=== PATIENT | male | born 1940 ===

== ENCOUNTER 2017-04-29 01:54 | Inpatient (IN) | payer OTHER ==
[~2017-04-29] VITALS: Ht 188 cm; Wt 106.6 kg
[~2017-04-29 01:54] MED LIST: ALLOPURINOL300 M1 PO; ASPIRIN EC81 M1 PO; DOXAZOSIN MESYLA2 M1 PO; LISINOPRIL10 M1 PO; SIMVASTATIN80 M1 PO; TOPROL XL25 M1 PO
[2017-04-29] MEDS ORDERED: COLACE100 M1 PO (09:56)
[2017-04-29] MEDS ORDERED: MS CONTIN15 M2 PO (09:56)
[2017-04-29] MEDS ORDERED: DILAUDID2 M1 PO (09:56)
[2017-04-29] MEDS ORDERED: MIRALAX17 G1 PO (09:56)
[2017-04-29] MEDS ORDERED: ASPIRIN EC325 M2 PO (09:56)
--- NOTE | 2017-04-29 10:01 | Patient Discharge Instructions ---
Discharge Instructions General Discharge Information You were seen/treated for: Right hip pain related to unilateral primary osteoarthritis You had these procedures: Right total hip replacement Watch for these problems: Increasing pain despite the use of pain medication. Increasing redness, warmth or swelling. Drainage of any type from incision. Inability to bear weight on operative leg. Persistent nausea and vomiting. Fever greater than 101.5 degrees. Do not soak the wound: Yes No bath, but you may shower: Yes Other wound care: Please keep wound clean and dry. No ointments or lotions of any type on or near incision at any time. No exceptions. Your dressing will be changed by your nurse on the second day after your surgery. Daily dry dressing changes are recommended each day thereafter. Do not soak your wound in a bath at any time until otherwise indicated by Dr. Smith. You may shower, please dry wound immediately after shower with a clean towel. Special Instructions: Aspirin: You are taking this medication to help prevent the development of blood clots. Please take with food to protect your stomach lining. Please take as directed. Constipation: Pain medication can be very constipating. Dr. Smith has recommended that you take Colace and miralax each day. You may discontinue this medication if you develop loose stool or diarrhea. If you wish to continue this medication, it is available over the counter. If you are unable to move your bowels after several days, if you are unable to pass gas and are developing bloating, nausea, or vomiting as a result, please contact your doctor. Diet Continue normal diet: Yes Recommended Diet: Heart Healthy Activity Full Activity/No Limits: No Activity Self Limited: Yes Pounds, do NOT lift more than: 10 Activity Limited to: Weight bear as tolerated Acute Coronary Syndrome Inclusion Criteria At DC or during hospital stay patient has or had the following: ACS DIAGNOSIS No Discharge Core Measures Meds if any: Prescribed or Continued at Discharge Meds if any: NOT Prescribed or Continued at Discharge Congestive Heart Failure Inclusion Criteria At DC or during hospital stay patient has or had the following: CHF DIAGNOSIS No Discharge Core Measures Meds if any: Prescribed or Continued at Discharge Meds if any: NOT Prescribed or Continued at Discharge Cerebrovascular accident Inclusion Criteria At DC or during hospital stay patient has or had the following: CVA/TIA Diagnosis No Discharge Core Measures Meds if any: Prescribed or Continued at Discharge Meds if any: NOT Prescribed or Continued at Discharge Venous thromboembolism Inclusion Criteria VTE Diagnosis No VTE Type NONE VTE Confirmed by (Test) NONE Discharge Core Measures - Per Current guidelines, there needs to be overlap - treatment for the first 5 days of Warfarin therapy. - If discharged on Warfarin prior to 5 days of - overlap therapy, the patient will need to be - assessed for post discharge needs including - *Post discharge parental anticoagulation - *Warfarin and/or parental anticoagulation education - *Follow up date to check INR post discharge At least 5 days overlap therapy as Inpatient No Meds if any: Prescribed or Continued at Discharge Note: Overlap Therapy is Warfarin and Anticoagulant Meds if any: NOT Prescribed or Continued at Discharge
--- NOTE | 2017-04-29 10:02 | Admission Core Measures ---
Admission Meds I reviewed the following Meds: Current Medications Sig/Haritha Start time Last Medication Dose Stop Time Status Admin Acetaminophen 975 MG ONCE 04/29 0000 NR (Tylenol) 04/29 2359 Allopurinol 300 MG DAILY 04/29 1000 AC (Zyloprim) Atorvastatin Calcium 80 MG 1700 04/29 1700 AC (Lipitor) Cefazolin Sodium 2,000 MG ONCE 04/29 0000 NR (Kefzol-Ancef Inj) 04/29 2359 Doxazosin Mesylate 2 MG DAILY 04/29 1000 AC (Cardura) Lisinopril 10 MG DAILY 04/29 1000 AC (Prinivil) Metoprolol Succinate 25 MG DAILY 04/29 1000 AC (Toprol XL) Oxycodone HCl 10 MG ONCE 04/29 NR (Roxicodone) 04/29 2359 Acute Coronary Syndrome Inclusion Criteria ACS Diagnosis No Inpatient Core Measures LDL Reminder: If No, please order W/I first 24hr of stay Congestive Heart Failure Inclusion Criteria CHF Diagnosis No Cerebrovascular accident Inclusion Criteria CVA/TIA Diagnosis No Inpatient Core Measures Bedside Swallow Eval Reminder: If BSE failed, place ST order Antithrombotic Reminder: Order Antithrombotic Medication by end of day 2 Antithrombotic Reminder: Document Reason Antithrombotic Not ordered by end of day 2 AFIB/Flutter Reminder: If Present, add to problem list AFIB/Flutter Reminder: Order Anticoag Medication for pts with AFIB/Flutter Atherosclerosis Reminder: If Present, add to problem list LDL Reminder: If No, please order W/I first 24hr of stay PT Order Reminder: If No, please order Venous thromboembolism Inpatient Core Measures VTE Risk Factors: Age > 40, Surgery No [facility] VTE prophylaxis d/t No contraindications No VTE Pharm Prophylaxis d/t No contraindications Inclusion Criteria - Per Current guidelines, there needs to be overlap - treatment for the first 5 days of Warfarin therapy. - Parenteral Anticoagulation (IV or SC) needs to be - given along with Warfarin therapy. VTE Diagnosis No VTE Type NONE VTE Confirmed by (Test) NONE Problem List As ranked by this Provider includes Assessment & Plan 1. Unilateral primary osteoarthritis, right hip HOME MEDS Home Med List Allopurinol 300 MG TABLET 1 TAB PO DAILY KIDNEY STONES (Reported) Aspirin (Ecotrin*) 81 MG TABLET.DR 1 TAB PO DAILY CAD (Reported) Aspirin (Ecotrin*) 325 MG TABLET.DR 1 TAB PO BID ANTICOAGULATION Docusate Sodium (Colace) 100 MG CAPSULE 1 CAP PO BID CONSITPATION Doxazosin Mesylate 2 MG TABLET 1 TAB PO DAILY PROSTATE (Reported) Hydromorphone HCl (Dilaudid) 2 MG TABLET 1-2 TAB PO Q4-6 PRN PAIN Lisinopril 10 MG TABLET 1 TAB PO DAILY HTN (Reported) Metoprolol Succ XL (Toprol XL) 25 MG TAB 1 TAB PO DAILY CAD (Reported) Morphine Sulfate (Ms Contin) 15 MG TABLET.ER 1 TAB PO BID PAIN Polyethylene Glycol 3350 (Miralax) 17 GRAM POWD.PACK 1 PAC PO DAILY CONSTIPATION Simvastatin (Simvastatin*) 80 MG TABLET 1 TAB PO DAILY CHOLESTEROL (Reported)
--- NOTE | 2017-04-29 10:04 | Surgical Discharge Summary ---
Visit Information Visit Dates Admission Date: 04/29/17 Discharge Date: 04/29/17 History of Present Illness Chief Complaint: Right hip pain related to unilateral primary osteoarthritis Surgical History Pertinent Surgical History: non-contributory Review of Systems: See H&P Hospital Course Course Attending Physician: JIE VARGAS MD Primary Care Physician: DAVID SPRINGER,[facility] Hospital Course: Patient was admitted to the hospital for an elective total joint replacement. The procedure was tolerated well and the patient was transferred to a general surgical floor. Diet was advanced and tolerated and the patient voided spontaneously. The patient was evaluated and treated by physical therapy. At the time of hospital discharge, the [facility] vital signs were stable and within normal limits, neurovascular status was intact, and pain was controlled with the use of oral pain medications. Allergies: Coded Allergies: No Known Allergies (04/24/17) Disposition Summary Disposition Principal Diagnosis: Right hip unilateral primary osteoarthritis Additional Diagnosis: None Discharge Disposition: home health services Discharge Instructions General Discharge Information Code Status: Full Code Patient's Diet: Heart healthy, advance as tolerated Patient's Activity: WBAT Follow-Up Instructions/Appts: Follow up with Dr. Vargas in 6 weeks from date of surgery. Please call his office to arrange and/or confirm this appointment. Medications at Discharge Discharge Medications: Stop taking the following medications: Aspirin (Ecotrin*) 81 MG TABLET. ORAL DAILY Continue taking these medications: Allopurinol (Allopurinol) 300 MG TABLET 1 Tablet ORAL DAILY Comments: Last Taken: NOT GIVEN IN HOSPITAL Metoprolol Succ XL (Toprol XL) 25 MG TAB 1 Tablet ORAL DAILY Comments: Last Taken: NOT GIVEN IN HOSPITAL Lisinopril (Lisinopril) 10 MG TABLET 1 Tablet ORAL DAILY Comments: Last Taken: NOT GIVEN IN HOSPITAL Simvastatin (Simvastatin*) 80 MG TABLET 1 Tablet ORAL DAILY Comments: Last Taken: NOT GIVEN IN HOSPITAL Doxazosin Mesylate (Doxazosin Mesylate) 2 MG TABLET 1 Tablet ORAL DAILY Comments: Last Taken: NOT GIVEN IN HOSPITAL Start taking the following new medications: Aspirin (Ecotrin*) 325 MG TABLET. 1 Tablet ORAL TWICE DAILY Qty = 60 No Refills Comments: NOT GIVEN IN HOSPITAL Docusate Sodium (Colace) 100 MG CAPSULE 1 Capsule ORAL TWICE DAILY Qty = 14 No Refills Instructions: DISCONTINUE USE IF YOU DEVELOP LOOSE STOOL OR DIARRHEA Comments: NOT GIVEN IN HOSPITAL Polyethylene Glycol 3350 (Miralax) 17 GRAM POWD.PACK 1 Packet ORAL DAILY Qty = 7 No Refills Instructions: dissolve in water, DISCONTINUE USE IF YOU DEVELOP LOOSE STOOL OR DIARRHEA Comments: NOT GIVEN IN HOSPITAL Hydromorphone HCl (Dilaudid) 2 MG TABLET 1-2 Tablet ORAL EVERY 4-6 HOURS as needed for PAIN Qty = 36 No Refills Comments: NOT GIVEN IN HOSPITAL Morphine Sulfate (Ms Contin) 15 MG TABLET.ER 1 Tablet ORAL TWICE DAILY Qty = 6 No Refills Comments: NOT GIVEN IN HOSPITAL
--- NOTE | 2017-04-29 12:01 | RADIOLOGY REPORT ---
EXAMINATION: XR HIP, RIGHT CLINICAL INFORMATION: Status post right total hip arthroplasty COMPARISON: None TECHNIQUE: Two views of the right hip. FINDINGS: Right-sided hip prosthesis is well seated. Periprosthetic osseous structures appear unremarkable. Air in the soft tissues compatible with recent postoperative change. IMPRESSION: Postoperative changes.
[2017-04-29 13:00] VITALS: BP 132/84
--- NOTE | 2017-04-29 13:16 | PN- Orthopedic ---
Subjective Subjective: The patient was seen this afternoon postoperatively. He reports his pain is under adequate control and he has no complaints at the current time. He wishes to go home later today because he had to work with physical therapy or void. Objective Vital Signs and I&Os Afebrile with stable vital signs Physical Exam: Gen.: Alert and in no obvious distress Skin: Warm and dry Cardiac: S1 and S2 regular Pulmonary: Bilateral breath sounds are equal with good exchange Extremities: Bilateral lower extremities are warm without calf tenderness or significant edema. Gross motor and sensory are intact. Right hip surgical dressing is clean, dry, and intact. Assessment/Plan Assessment/Plan Assessment: 76-year-old male status post right total hip arthroplasty. Postoperative the patient is progressing as expected and his pain is under adequate control. Plan: Out of bed with physical therapy Continue current pain regiment Resume home medications GI and DVT prophylaxis, first dose of aspirin to begin tonight Advance diet as tolerated 2 doses of postoperative prophylactic antibiotics Monitor for postoperative void Possible discharge home later today if cleared by physical therapy and voids Core Measures/Miscellaneous Venous Thromboembolism VTE Risk Factors: Age > 40, Surgery VTE Contraindications: No Contraindications VTE Diagnosis: No VTE Type: NONE VTE Confirmed by (Test): NONE Beta Blane Is Beta Blane a Home Med? Yes If Yes, Was This Ordered Today? Yes Antibiotics Is Patient on Antibiotics? Yes If Yes: prophylaxis
--- NOTE | 2017-04-29 15:09 | Operative Report ---
Operative/Inv Procedure Report Surgery Date: 04/29/17 Name of Procedure: Right total hip replacement Pre-Operative Diagnosis: Primary right hip DJD Post-Operative Diagnosis: Same Estimated Blood Loss: 300 Surgeon/Personal Care Aid: SAM SPRINGER,JIE Ledesma Anesthesia: block Operative/Procedure Note Note: Description of Procedure: The patient was taken to the operating room and positively identified. After induction of spinal anesthesia and administration of appropriate pre-operative antibiotics, the patient was positioned supine on the operating room table and all bony prominences were well padded. After performing a surgical timeout, the right lower extremity was prepped and draped in the usual sterile fashion. A direct anterior approach was made to the right hip. The incision was carried sharply through superficial soft tissues to the level of the fascia. Meticulous hemostasis was maintained with Bovie electocautery. The fascia over the tensor fascia jerry muscle was opened sharply and the interval between the TFL and the sartorius was entered bluntly taking care to stay lateral to the lateral femoral cutaneous nerve. Retractors were placed around the femoral neck and the pericapsular fat was identified. The ascending branches of the lateral femoral circumflex vessels were identified and carefully coagulated. The pericapsular fat and anterior capsule were then resected. A napkin ring osteotomy was performed and the femoral head was removed without difficulty. Attention was then turned to the acetabulum. After appropriate placement of retractors, the acetabulum was exposed. Soft tissue was cleaned from the acetabular margin and notch. Overhanging osteophytes were removed and the teardrop was exposed. The acetabulum was then sequentially reamed to accept a 64 mm Anastasia Tritanium hemispherical solid back shell. This was impacted into place in the appropriate position and fitted with a 36 mm Trident X3 zero degree polyethylene insert. Attention was then turned to the femur. After performing the appropriate ligament releases, the proximal femur was exposed. It was then sequentially broached to accept a size 7 [place] accolade 2 stem. This was trialed for leg length and stability. The trial component was removed and the final component was impacted into place. The trunnion was carefully cleaned and fit with a 36 mm, +0 Biolox delta ceramic femoral head. The hip was reduced and put through a full range of motion and found to be stable. The articular space was then irrigated with sterile saline. The periarticular soft tissues were infilitrated with Marcaine. The fascial layer was closed with interrupted #1 vicryl suture and the skin was re-approximated with interrupted 2 -0 vicryl. The skin was closed with a running 3-0 V-Lock suture. Steri-strips and a sterile dressing were applied. The patient was awakened and taken to the recovery room in satisfactory condition.
== END 2017-04-29 17:55 | disposition home health service (06) | DRG 470 ==
LOC: SDA 01:54 → ENRESERV 11:54 → ENTRNSPT 12:32 → EDTRNSPTSTS 12:48 → EDTRNSPT 12:48 → 2NB 12:56 → CMPTRNSPT 13:17 → 2NB 17:55
PROVIDERS: ADMIT Orthopaedic Surgery
PROC: 0SR904A Replacement of Right Hip Joint with Ceramic on Polyethylene Synthetic Substitute, Uncemented, Open Approach (ICD-10-PCS; principal; 2017-04-29)
DX: M16.11 Unilateral primary osteoarthritis, right hip (principal); I45.2 Bifascicular block; I10 Essential (primary) hypertension; M25.751 Osteophyte, right hip; I25.10 Atherosclerotic heart disease of native coronary artery without angina pectoris; E78.5 Hyperlipidemia, unspecified; E78.00 Pure hypercholesterolemia, unspecified; Z95.1 Presence of aortocoronary bypass graft; Z87.442 Personal history of urinary calculi; Z87.891 Personal history of nicotine dependence
CPT/HCPCS: 2NBSP; 73502-RT; J0131; J0690; J0735; J2405; J2550; J7042